=== PATIENT | male | born 1945 | race Caucasian/White ===

== ENCOUNTER 2023-04-09 06:14 | Day surgery (SDC) | payer MEDICARE, BC ==
[~2023-04-09] VITALS: Ht 172.7 cm; Wt 78.0 kg
[~2023-04-09 06:14] MED LIST: AMIO200T49 PO; CLOP75TA2 PO; CYCLOPENTOLATE 1% OPHTH SOLN 2ML BTL OD SCH; ENOX120I3 SC; FLURBIPROFEN 0.03% OPHTH SOLN 2.5 ML OD SCH; LEVO112T2 PO; LOSA25TA13 PO; METF500T13 PO; METO1TAB32 PO; NITR4TASL SL; PHENYLEPHRINE 2.5% OPHTH SOL 2ML OD SCH; TETRACAINE 0.5% OPHTH SOLN 4ML OD SCH; VITMTA PO
[2023-04-09] MEDS ORDERED: LIDOCAINE 1% SDV 5ML VIAL As Ordered ONE (06:45)
[2023-04-09] MEDS ORDERED: CEFUROXIME 1MG/0.1ML INTRACAMERAL INJ As Ordered ONE (06:45)
[2023-04-09] MEDS ORDERED: LR 1,000 ML IV SCH (07:00)
[2023-04-09] MEDS ORDERED: MIDAZOLAM INJ 2MG/2ML VIAL As Ordered ONE (07:05)
[2023-04-09 09:00] VITALS: BP 135/79; TEMP 97.6; O2SAT 99
== END 2023-04-09 09:37 | disposition home or self-care (01) ==
LOC: M SDC 06:14
PROVIDERS: ATTEND Ophthalmology
DX: H25.11 Age-related nuclear cataract, right eye (principal); I48.91 Unspecified atrial fibrillation; I25.2 Old myocardial infarction; E11.9 Type 2 diabetes mellitus without complications; G47.30 Sleep apnea, unspecified; Z95.5 Presence of coronary angioplasty implant and graft; Z88.8 Allergy status to other drugs, medicaments and biological substances; I10 Essential (primary) hypertension; E03.9 Hypothyroidism, unspecified; K21.9 Gastro-esophageal reflux disease without esophagitis; Z95.0 Presence of cardiac pacemaker; D68.2 Hereditary deficiency of other clotting factors; Z79.899 Other long term (current) drug therapy; Z79.02 Long term (current) use of antithrombotics/antiplatelets; Z79.890 Hormone replacement therapy; Z79.84 Long term (current) use of oral hypoglycemic drugs
CPT/HCPCS: 66984; J0697; J2250; V2632